=== PATIENT | female | born 1980 | race Caucasian/White ===

== ENCOUNTER 2016-06-04 19:02 | Emergency (ER) | payer OTHER ==
[~2016-06-04] VITALS: Ht 160 cm; Wt 87.3 kg
[~2016-06-04 19:02] MED LIST: CYM/30 PO; FEXO5TAB2 PO; FLUC150T PO
[2016-06-04 19:13] VITALS: TEMP 37; Ht 160 cm; Wt 87.3 kg
[2016-06-04] MEDS ORDERED: SODIUM CHLORIDE 0.9% 1000ML 1,000 ML IV STA ×2 (20:15)
[2016-06-04] MEDS ORDERED: ONDANSETRON INJ 2 MG/ML 2 ML VIAL IV STA ×2 (20:15→22:43)
--- NOTE | 2016-06-04 20:21 | EMERGENCY ROOM VISIT NOTE ---
History Report prepared by Nbaibsuzanne: Deepika Franks Under the Supervision of: Dr. Ilya Stubbs D.O. First contact with patient: 20:04 Chief Complaint: ABDOMINAL PAIN Stated Complaint: INTENSE PAIN IN RT SIDE, DIZZY, SHAKEY, NAUSEA History of Present Illness The patient is a 36 year old female who presents to the Emergency Room with complaints of worsening abdominal pain for the past 2 to 3 weeks. She rates her discomfort as an 8.5/10. She states "I think it's a ruptured ovarian cyst or my appendix". 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 She notes last night her pain worsened, mainly on the right side, so she made an appointment with [facility] OB /ADVANCED REGISTERED NURSE today. She saw Dr. Gillette earlier today and states he ordered lab work and recommended she undergo an ultrasound next week. She has also experienced nausea , dizziness and shakiness. She denies any diarrhea, urinary symptoms or rectal bleeding. She admits to some brown vaginal discharge earlier today and reports her LMP ended this past week. She notes her menstrual period was "the heaviest it has been since I was a teenager". She is currently sexually active. Source of History: patient Onset: 2 to 3 weeks ROCK [employer] Position: abdomen Symptom Intensity: 8.5/10 Timing: worsening Associated Symptoms: + nausea, No diarrhea, No urinary symptoms Review of Systems See HPI for pertinent positives & negatives. A total of 10 systems reviewed and were otherwise negative. Past Medical & Surgical Medical Problems: (1) Shubham's thyroiditis Surgical Problems: (1) History of wisdom tooth extraction (2) Ovarian tumor Family History Cancer Seizures Social History Smoking Status: Never Smoker Smokeless Tobacco Use: No Alcohol Use: occasionally Drug Use: none Marital Status: single Housing Status: lives with family Occupation Status: employed Current/Historical Medications Scheduled Duloxetine Hcl (Cymbalta), 20 MG PO DAILY Levothyroxine Sodium (Levothyroxine Sodium), 1 TAB PO DAILY Polyethylene Glycol 3350 (Miralax), 17 GM PO DAILY Scheduled PRN Fexofenadine-Pseudoephedrine (Eva-D 12 Hour Allergy), 1 TAB PO BID PRN Lorazepam (Ativan), 0.5 MG PO for Anxiety Allergies Coded Allergies: No Known Allergies (Unverified , 08/29/12) Physical Exam Vital Signs Date Time Temp Pulse Resp B/P Pulse Ox O2 Delivery O2 Flow Rate FiO2 06/04/16 19:13 37.0 85 18 127/90 96 Room Air Physical Exam GENERAL: Patient is awake, alert, in no acute distress, patient is resting comfortably and showing no signs of anxiety EYES: The conjunctivae are clear. The pupils are round and reactive. EARS, NOSE, MOUTH AND THROAT: The nose is without any evidence of any deformity. Mucous membranes are moist tongue is midline NECK: The neck is nontender and supple. RESPIRATORY: Normal respiratory effort is noted there is no evidence of wheezing rhonchi or rales CARDIOVASCULAR: Regular rate and rhythm noted there no murmurs rubs or gallops normal S1 normal S2 GASTROINTESTINAL: The abdomen is mildly distended but soft. There is RLQ tenderness to palpation and bilateral lower suprapubic tenderness to palpation, no guarding or rigidity noted. BACK: No midline tenderness or or step-off noted range of motion in flexion extension as well as rotation no signs of muscle spasm noted MUSCULOSKELETAL/EXTREMITIES: There is no evidence of gross deformity full range of motion is noted in the hips and shoulders SKIN: There is no obvious evidence of any rash. There are no petechiae, pallor or cyanosis noted. NEUROLOGIC: Patient is awake alert and oriented x3 Medical Decision & Procedures ER Provider Diagnostic Interpretation: This CT scan was reviewed and interpreted by the radiologist and reviewed by myself. Preliminary Findings Only See Final Report For Complete Findings CT ABDOMEN & PELVIS: The appendix is normal in size without evidence of surrounding inflammatory change. Moderate amount of retained stool throughout the colon. Correlate for constipation. No free fluid. No free air. No evidence of bowel obstruction. The liver, spleen, pancreas, gallbladder and kidneys are unremarkable. Radiologist: Richi Banks MD Study ready at 23:34 and initial results transmitted at 00:09 Laboratory Results 06/04/16 20:30 Red Blood Count 4.81, Mean Corpuscular Volume 88.4, Mean Corpuscular Hemoglobin 31.0, Mean Corpuscular Hemoglobin Concent 35.1, Mean Platelet Volume 10.6, Neutrophils (%) (Auto) 71.0, Lymphocytes (%) (Auto) 21.7, Monocytes (%) (Auto) 6.6, Eosinophils (%) (Auto) 0.3, Basophils (%) (Auto) 0.2, Neutrophils # (Auto) 6.65, Lymphocytes # (Auto) 2.04, Monocytes # (Auto) 0.62, Eosinophils # (Auto) 0.03, Basophils # (Auto) 0.02 06/04/16 20:30 Test 06/04/16 20:30 White Blood Count 9.38 K/uL (4.8-10.8) Red Blood Count 4.81 M/uL (4.2-5.4) Hemoglobin 14.9 g/dL (12.0-16.0) Hematocrit 42.5 % (37-47) Mean Corpuscular Volume 88.4 fL (80-100) Mean Corpuscular Hemoglobin 31.0 pg (25-34) Mean Corpuscular Hemoglobin Concent 35.1 g/dl (32-36) Platelet Count 276 K/uL (130-400) Mean Platelet Volume 10.6 fL (7.4-10.4) Neutrophils (%) (Auto) 71.0 % Lymphocytes (%) (Auto) 21.7 % Monocytes (%) (Auto) 6.6 % Eosinophils (%) (Auto) 0.3 % Basophils (%) (Auto) 0.2 % Neutrophils # (Auto) 6.65 K/uL (1.4-6.5) Lymphocytes # (Auto) 2.04 K/uL (1.2-3.4) Monocytes # (Auto) 0.62 K/uL (0.11-0.59) Eosinophils # (Auto) 0.03 K/uL (0-0.5) Basophils # (Auto) 0.02 K/uL (0-0.2) RDW Standard Deviation 38.8 fL (36.4-46.3) RDW Coefficient of Variation 12.1 % (11.5-14.5) Immature Granulocyte % (Auto) 0.2 % Immature Granulocyte # (Auto) 0.02 K/uL (0.00-0.02) Urine Color YELLOW Urine Appearance CLEAR (CLEAR) Urine pH 7.5 (4.5-7.5) Urine Specific [place] 1.014 (1.000-1.030) Urine Protein NEG (NEG) Urine Glucose (UA) NEG (NEG) Urine Ketones NEG (NEG) Urine Occult Blood NEG (NEG) Urine Nitrite NEG (NEG) Urine Bilirubin NEG (NEG) Urine Urobilinogen NEG (NEG) Urine Leukocyte Esterase NEG (NEG) Anion Gap 10.0 mmol/L (3-11) Est Creatinine Clear Calc Drug Dose 101.5 ml/min Estimated GFR () 109.1 Estimated GFR (Non- 94.1 BUN/Creatinine Ratio 11.2 (10-20) Calcium Level 9.7 mg/dl (8.5-10.1) Total Bilirubin 0.3 mg/dl (0.2-1) Direct Bilirubin < 0.1 mg/dl (0-0.2) Aspartate Amino Transf (AST/SGOT) 17 U/L (15-37) Alanine Aminotransferase (ALT/SGPT) 20 U/L (12-78) Alkaline Phosphatase 73 U/L (45-117) Total Protein 8.7 gm/dl (6.4-8.2) Albumin 4.5 gm/dl (3.4-5.0) Lipase 158 U/L (73-393) Human Chorionic Gonadotropin, Qual NEG (NEG) Laboratory results per my review. Medications Administered Medications (Trade) Dose Ordered Sig/[place] Route Start Time Stop Time Status Last Admin Dose Admin Sodium Chloride (Nss 1000ml) 1,000 ml @ 999 mls/hr Q1H1M STAT IV 06/04/16 20:15 06/04/16 21:15 DC 06/04/16 20:46 999 MLS/HR Ondansetron HCl 4 mg 4 mg NOW STAT IV 06/04/16 20:15 06/04/16 20:16 DC 06/04/16 20:45 4 MG Sodium Chloride (Nss 1000ml) 1,000 ml @ 200 mls/hr Q5H STAT IV 06/04/16 20:15 06/05/16 01:14 06/04/16 20:46 200 MLS/HR Ondansetron HCl (Zofran Inj) 4 mg NOW STAT IV 06/04/16 22:43 06/04/16 22:45 DC 06/04/16 22:51 4 MG Fentanyl Citrate 50 mcg 50 mcg NOW STAT IV 06/04/16 22:43 06/04/16 22:45 DC 06/04/16 22:52 50 MCG Promethazine HCl/ Sodium Chloride (Phenergan Inj/ Nss 50ml) 50.5 ml @ 204 mls/hr NOW STAT IV 06/05/16 00:03 06/05/16 00:17 DC 06/05/16 00:03 204 MLS/HR ED Course 2011: The patient was evaluated in room A9B. A complete history and physical examination were performed. 2015: NSS 1000 ml @ 200 mls/hr IV, Zofran 4 mg IV, NSS 1000 ml @ 999 mls/hr IV. 2243: Fentanyl Citrate 50 mcg IV, Zofran 4 mg IV. 0003: Promethazine HCl 12.5 mg/NSS 50.5 ml @ 204 mls/hr IV. 0010: I reevaluated the patient. She is feeling better. I discussed her results and discharge instructions and she verbalized complete understanding and agreement. Medical Decision Prior records/ancillary studies reviewed. Triage Nursing notes reviewed. The patient's history was concerning for abdominal pain. Differential diagnosis: Etiologies such as appendicitis, diverticulitis, PUD, biliary pathology, UTI, pancreatitis, obstruction, mesenteric ischemia, aortic pathology, infections, inflammatory bowel disease, renal colic, as well as others were entertained. The patient is a 36-year-old female who presented to the emergency department for an evaluation of lower abdominal pain. She was sent to the emergency apartment for the possibility of appendicitis. She appeared to have reproducible right lower quadrant tenderness on physical exam. Her white blood cell count was not elevated but a CAT scan was ordered to evaluate further for signs of appendicitis. She did not appear to have signs of appendicitis on CAT scan. She does not appear to have a surgical abdomen on physical exam. She was treated with IV fluids IV pain medicine and IV antiemetics. She was feeling much better on subsequent reevaluation. I discussed the patient's laboratory radiographic studies with her. She was encouraged to rest and avoid any strenuous activity. She was encouraged to call her primary care physician in the morning to schedule follow point. She was also encouraged to return to the emergency department immediately if symptoms change worsen or the need arises. Impression Primary Impression: RLQ abdominal pain Additional Impression: Constipation Scribe Attestation The scribe's documentation has been prepared under my direction and personally reviewed by me in its entirety. I confirm that the note above accurately reflects all work, treatment, procedures, and medical decision making performed by me. Departure Information Dispostion Home / Self-Care Prescriptions Polyethylene Glycol 3350 (MIRALAX) 1 Pow 17 GM PO DAILY, #527 GM Prov: Ilya Stubbs, 06/05/16 Referrals Eileen Ruelas D.ONo (PCP) Patient Instructions My [facility] Problem Qualifiers Additional Impression: Constipation Constipation type: unspecified constipation type Qualified Codes: K59.00 - Constipation, unspecified
[2016-06-04] MEDS ORDERED: LORA-741 PO (20:52)
[2016-06-04] MEDS ORDERED: DULO-24 PO (20:52)
[2016-06-04] MEDS ORDERED: LEVO75TA5 PO (20:52)
[2016-06-04 21:05] LABS: URINE APPEARANCE CLEAR (CLEAR); URINE BILIRUBIN NEG (NEG); URINE COLOR YELLOW; URINE NITRITE NEG (NEG); URINE PH 7.5 (4.5-7.5); URINE SPECIFIC GRAVITY 1.014 (1.000-1.030); UROBILINOGEN NEG (NEG)
[2016-06-04 21:17] LABS: MANUAL MICROSCOPIC REQUIRED? NO; REVIEW REQ? NO
[2016-06-04 21:19] LABS: BASO % 0.2 %; BASO ABS # 0.02 K/uL (0-0.2); COMPLETE YES; EOS % 0.3 %; HEMATOCRIT 42.5 % (37-47); IG% 0.2 %; LYMPH % 21.7 %; LYMPH ABS # 2.04 K/uL (1.2-3.4); MEAN CELL VOLUME 88.4 fL (80-100); MEAN CORPUSCULAR HGB CONC 35.1 g/dl (32-36); MEAN PLATELET VOLUME 10.6 fL (7.4-10.4); MONO % 6.6 %; PLATELET COUNT 276 K/uL (130-400); RED BLOOD COUNT 4.81 M/uL (4.2-5.4); WHITE BLOOD COUNT 9.38 K/uL (4.8-10.8)
[2016-06-04 21:35] LABS: ALT/SGPT 20 U/L (12-78); BLOOD UREA NITROGEN 9 mg/dl (7-18); BUN/CREATININE RATIO 11.2 (10-20); CALCIUM 9.7 mg/dl (8.5-10.1); CARBON DIOXIDE 27 mmol/L (21-32); CHLORIDE 102 mmol/L (98-107); CREATININE 0.81 mg/dl (0.60-1.20); GLUCOSE 93 mg/dl (70-99); POTASSIUM 3.6 mmol/L (3.5-5.1); SODIUM 139 mmol/L (136-145)
[2016-06-04 21:38] LABS: ALKALINE PHOSPHATASE 73 U/L (45-117); AST/SGOT 17 U/L (15-37)
[2016-06-04 21:45] LABS: PREG INTERNAL NEGATIVE QC NEG CLEAR BACKGROUND; PREG INTERNAL POSITIVE QC POS CONTROL LINE
[2016-06-04] MEDS ORDERED: FENTANYL CITRATE INJ 50 MCG/1 ML 2 ML VIAL IV STA (22:43)
[2016-06-04] MEDS ORDERED: OPTIRAY 320 IV PRN (23:15)
[2016-06-05] MEDS ORDERED: PROMETHAZINE HCL INJ 12.5 MG in SODIUM CHLORIDE 0.9% 50ML 50 ML IV STA (00:03)
[2016-06-05] MEDS ORDERED: POLY335019 PO (00:49)
[2016-06-05] MEDS ORDERED: TRAMADOL HCL 50 MG HOME PACK PO ONE (01:00)
[2016-06-05] MEDS ORDERED: ONDANSETRON HOME PACK 4MG OD TAB PO ONE (01:00)
[2016-06-05 01:21] VITALS: BP 123/81; PULSE 79; O2SAT 98
--- NOTE | 2016-06-05 07:33 | DIAGNOSTIC IMAGING REPORT ---
CT SCAN OF THE ABDOMEN AND PELVIS WITH IV CONTRAST CLINICAL HISTORY: Right lower quadrant abdominal pain. COMPARISON STUDY: Abdominal CT dated 06/19/2010. Pelvic ultrasound dated 07/10/2015. TECHNIQUE: Following the IV administration of 92 cc of Optiray 320, CT scan of the abdomen and pelvis is performed from the lung bases to the proximal femora. Images are reviewed in the axial, sagittal, and coronal planes. IV contrast was administered without complication. Automated dose control exposure was utilized. CT DOSE: 607.78 mGy.cm FINDINGS: Lung bases: The heart is normal in size and without pericardial effusion. The lung bases are clear. Liver: The contrast-enhanced liver is normal in size, contour, and attenuation. Focal fatty infiltration is seen adjacent to the falciform ligament. There is no intrahepatic biliary ductal dilatation. The hepatic veins and portal veins are patent. Gallbladder: Unremarkable. Spleen: Normal in size and attenuation. Pancreas: Unremarkable. Adrenal glands: Unremarkable. Kidneys: The contrast enhanced kidneys are normal in size and without hydronephrosis. The kidneys enhance symmetrically. Abdominal vasculature: The abdominal aorta is normal in course and caliber. Bowel: The small bowel and colon are normal in course and caliber. Moderate colonic fecal retention is observed. The appendix is well-visualized and normal. Peritoneum: There is no intraperitoneal free air or abdominal ascites. There is a fat-containing umbilical hernia. Lymphadenopathy: None. Pelvic viscera: The bladder, uterus, and adnexa are normal as visualized. There are small bilateral ovarian follicles. Skeletal structures: No lytic or blastic lesions are seen. IMPRESSION: 1. There are no acute infectious or inflammatory findings in the abdomen or pelvis. 2. Moderate constipation. Electronically signed by: Carlos Pinon M.D. 06/05/2016 7:32 AM Dictated Date/Time: 06/05/2016 7:29 AM
== END 2016-06-05 01:22 | disposition home or self-care (01) ==
LOC: C.EDB 19:03 → C.EDA 06-05 01:22
DX: R10.31 Right lower quadrant pain (principal); K59.00 Constipation, unspecified; E06.3 Autoimmune thyroiditis; Z86.018 Personal history of other benign neoplasm; Z79.899 Other long term (current) drug therapy; Z80.9 Family history of malignant neoplasm, unspecified; Z82.0 Family history of epilepsy and other diseases of the nervous system

== ENCOUNTER 2016-11-17 07:44 | Emergency (ER) | payer OTHER ==
[~2016-11-17] VITALS: Ht 157.5 cm; Wt 84.4 kg
[~2016-11-17 07:44] MED LIST changes: -CYM/30 PO; +DULO-24 PO; -FLUC150T PO; +LEVO75TA5 PO; +LORA-741 PO; +POLY335019 PO
[2016-11-17 07:49] VITALS: TEMP 36.4; Ht 157.5 cm; Wt 84.4 kg
[2016-11-17] MEDS ORDERED: ACET-1256 PO (08:30)
[2016-11-17] MEDS ORDERED: OXYC-57 PO (08:30)
[2016-11-17] MEDS ORDERED: ONDA4TAB10 SL (08:30)
[2016-11-17] MEDS ORDERED: MAGNESIUM HYDROXIDE SUSP 30 ML UDC PO ONE (08:45)
--- NOTE | 2016-11-17 09:02 | EMERGENCY ROOM VISIT NOTE ---
History First contact with patient: 08:10 Chief Complaint: THROAT PAIN/INJURY Stated Complaint: TONSILS OUT, BLEEDING THROAT History of Present Illness The patient is a 36 year old female who presents to the Emergency Room with complaints of post-tonsillectomy bleeding and a sensation of clot or scab in her throat. Patient had tonsillectomy performed by Dr. boswell last , 11/12. Has been taking regular percocet 5 and ondansetron prn as prescribed. Pain well controlled. Patient noticed scabs starting to come off in the last 24 hours, and has been feeling blood down throat and has been spitting up red blood this morning. She gargled ice water at home and this slowed the bleeding; she does not have any active bleeding at time of this history. Her only complaint at this time is the sensation of something stuck in her throat. No vomiting since 11/12 but does complain of nausea; last ondansetron taken at 0400 today. 3 percocet taken in the past 12 hours, last at 0700 today. Other complaints include opioid induced constipation. Review of Systems See HPI for pertinent positives and negatives. A total of ten systems were reviewed and were otherwise negative. Past Medical/Surgical History Medical Problems: (1) Shubham's thyroiditis Surgical Problems: (1) History of wisdom tooth extraction (2) Ovarian tumor Family History Cancer Seizures Social History Smoking Status: Never Smoker Alcohol Use: occasionally Drug Use: none Marital Status: single Housing Status: lives with family Occupation Status: employed Current/Historical Medications Scheduled Duloxetine Hcl (Cymbalta), 20 MG PO DAILY Levothyroxine Sodium (Levothyroxine Sodium), 75 MCG PO DAILY Scheduled PRN Acetaminophen (Tylenol), 500 MG PO UD PRN for Pain Lorazepam (Ativan), 0.5 MG PO for Anxiety Ondasetron Odt (Zofran Odt), 4 MG SL Q6H PRN for Nausea Oxycodone/Acetaminophen 5MG/325MG (Percocet 5MG/325MG), 1-2 TABLETS PO Q4H PRN for Pain Physical Exam Vital Signs Date Time Temp Pulse Resp B/P (MAP) Pulse Ox O2 Delivery O2 Flow Rate FiO2 11/17/16 07:54 96 Room Air 11/17/16 07:49 36.4 84 18 111/80 96 Room Air Physical Exam GENERAL: Awake, alert, well-appearing, in no distress HENT: Eschar of tonsillectomy noted bilaterally; no active bleeding noted; diffuse swelling of posterior pharynx; Brown hue to tongue likely related to leftover clotted blood. EYES: Normal conjunctiva. Sclera non-icteric. NECK: + LAD bilaterally of anterior cervical chain, submental, submandibular glands. Supple. No nuchal rigidity. FROM. No JVD. RESPIRATORY: Clear to auscultation. CARDIAC: Regular rate, normal rhythm. Extremities warm and well perfused. Pulses equal. ABDOMEN: Soft, non-distended. No tenderness to palpation. No rebound or guarding. No masses. RECTAL: Deferred. MUSCULOSKELETAL: Chest examination reveals no tenderness. The back is symmetrical on inspection without obvious abnormality. There is no CVA tenderness to palpation. No joint edema. LOWER EXTREMITIES: Calves are equal size bilaterally and non-tender. No edema. No discoloration. NEURO: Normal sensorium. No sensory or motor deficits noted. SKIN: No rash or jaundice noted. Medical Decision & Procedures ED Course 0735: patient arrives in ED 0800: patient roomed in A4B 0815: complete H&P performed on patient; no active bleeding noted; residual clotted blood remains on tongue and eschar noted around tonsils. 0835: ordered 30 mL milk of magnesia to help with constipation from opioids. 0845: ordered ENT-directed post-tonsillectomy bleeding protocol of iced saline: H2O2 in 5:1 ratio; gargle and spit for 5 minutes. 0905: patient reevaluated; no active bleeding; complaint of clot/scab in throat has alleviated and patient reports several small clots were brought up after gargling. 0915: patient cleared for DC. Medical Decision 36 yo patient presents with acute post-tonsillectomy bleeding and sensation of clot or scab stuck in her throat. PE did not demonstrate any active bleeding, but evidence of leftover clotted blood in the oral cavity. By the evaluation outlined above other emergent etiologies were deemed relatively unlikely. The patient was educated about the findings. All questions were answered and the patient was pleased with the treatment. Return instructions were outlined and the patient was discharged in stable condition. The patient was referred for follow-up with ENT if necessary for a recheck of the current condition. Discussed with patient to return to ED if any issues persist including sudden onset or worsening of bleeding, difficulty swallowing, new onset of fever, severe nausea and/or vomiting. Impression Primary Impression: Post-tonsillectomy hemorrhage Additional Impression: Therapeutic opioid-induced constipation (OIC) Departure Information Dispostion Home / Self-Care Condition GOOD Referrals David Glynn III, M.D. (PCP) Patient Instructions My [facility] Additional Instructions The patient was referred for follow-up with ENT if necessary for a recheck of the current condition. Discussed with patient to return to ED if any issues persist including sudden onset or worsening of bleeding, difficulty swallowing, new onset of fever, severe nausea and/or vomiting. If symptoms persist, we recommend gargling salt water at home. Oxycodone (OxyIR) 5mg: Take 1-2 pills every four hours as needed for breakthrough pain. Avoid alcohol, operating machinery or dangerous equipment, working on ladders or roofs, DRIVING, or situations where being under the influence may be dangerous. It is recommended to use a stool softener such as Colace, 100mg twice daily, or milk of magnesia while taking this medication to avoid constipation. Resident Tracking Resident Involvement: Resident Care Provided Care Provided: Adult ED Problem Qualifiers
--- NOTE | 2016-11-17 09:23 | EMERGENCY ROOM VISIT NOTE ---
ED Visit Note First contact with patient: 08:10 Patient seen and examined at bedside. Patient with obvious healing assure status post tonsillectomy. No active bleeding noted. No fevers/chills. No difficulty swallowing, no trismus, no stridor. No blood seen here with gargling per ENT recommendations. Discussed treatment of constipation at bedside. Discussed follow-up with ENT, symptoms to watch and return for, she verbalized understanding was agreeable with plan.
[2016-11-17 09:29] VITALS: BP 139/69; PULSE 78; O2SAT 97
== END 2016-11-17 09:31 | disposition home or self-care (01) ==
LOC: C.EDB 07:46 → C.EDA 09:31
DX: K91.841 Postprocedural hemorrhage of a digestive system organ or structure following other procedure (principal); K59.03 Drug induced constipation; E06.3 Autoimmune thyroiditis; Z79.899 Other long term (current) drug therapy; Z80.9 Family history of malignant neoplasm, unspecified; Z82.0 Family history of epilepsy and other diseases of the nervous system

== ENCOUNTER 2016-11-18 05:45 | Emergency (ER) | payer OTHER ==
[~2016-11-18] VITALS: Ht 160 cm; Wt 84.6 kg
[~2016-11-18 05:45] MED LIST changes: +ACET-1256 PO; -FEXO5TAB2 PO; +ONDA4TAB10 SL; +OXYC-57 PO; -POLY335019 PO
[2016-11-18 05:51] VITALS: TEMP 37.6; Ht 160 cm; Wt 84.6 kg
[2016-11-18] MEDS ORDERED: PROMETHAZINE HCL INJ 25 MG/ML 1 ML VIAL IM STA (06:08)
[2016-11-18] MEDS ORDERED: KETOROLAC TROMETHAMINE 60 MG/2 ML VIAL IM STA (06:11)
--- NOTE | 2016-11-18 06:35 | DIAGNOSTIC IMAGING REPORT ---
CHEST 2 VIEWS ROUTINE HISTORY: 36 years-old Female cough, fever, s/p tonsillectomy COMPARISON: CT abdomen and pelvis 06/04/2016 TECHNIQUE: Frontal and lateral views of the chest FINDINGS: Cardiomediastinal and hilar silhouettes are within normal limits. No pneumothorax, pleural effusion or focal airspace consolidation. The bones are grossly intact. IMPRESSION: No acute cardiopulmonary process. The above report was generated using voice recognition software. It may contain grammatical, syntax or spelling errors. Electronically signed by: Boom Yepez M.D. 11/18/2016 6:33 AM Dictated Date/Time: 11/18/2016 6:33 AM
[2016-11-18] MEDS ORDERED: FAMOTIDINE 20 MG TAB PO ONE (07:00)
--- NOTE | 2016-11-18 07:05 | EMERGENCY ROOM VISIT NOTE ---
History Report prepared by Kailyn: Clifton Larson Under the Supervision of: Dr. Sabine Alves M.D. First contact with patient: 06:01 Chief Complaint: FEVER Stated Complaint: SPIKED FEVER,COUGHING PHLEM,TONSILS OUT THURS History of Present Illness The patient is a 36 year old female who presents to the Emergency Room with complaints of a worsening fever of ~101 degrees beginning today. Pt states it was dark when she took her temperature, so she wasn't sure. She also complains of a productive cough, abdominal pain, nausea, dizziness, and headaches. She denies any shortness of breath or urinary symptoms. The patient notes that she had her tonsils removed five days ago, and was seen in the ED a few days ago for tonsillar bleeding. She states she was told to return to the ED if she developed a fever. She states that she has been eating and drinking without significant difficulty. The patient has been using Oxycodone for her post- surgical pain. Source of History: patient Onset: Today Symptom Intensity: 101 degrees Quality: other (fever) Timing: worsening Associated Symptoms: + headache, + cough (productive), + nausea, + abdominal pain, No SOB, No urinary symptoms Note: Additional symptoms: dizziness. Review of Systems See HPI for pertinent positives & negatives. A total of 10 systems reviewed and were otherwise negative. Past Medical & Surgical Medical Problems: (1) Shubham's thyroiditis Surgical Problems: (1) History of wisdom tooth extraction (2) Ovarian tumor Family History Cancer Seizures Social History Smoking Status: Never Smoker Alcohol Use: occasionally Drug Use: none Marital Status: single Housing Status: lives with family Occupation Status: employed Current/Historical Medications Scheduled Duloxetine Hcl (Cymbalta), 20 MG PO DAILY Levothyroxine Sodium (Levothyroxine Sodium), 75 MCG PO DAILY Scheduled PRN Acetaminophen (Tylenol), 500 MG PO UD PRN for Pain Lorazepam (Ativan), 0.5 MG PO for Anxiety Ondasetron Odt (Zofran Odt), 4 MG SL Q6H PRN for Nausea Oxycodone/Acetaminophen 5MG/325MG (Percocet 5MG/325MG), 1-2 TABLETS PO Q4H PRN for Pain Allergies Coded Allergies: Morphine (Unverified Adverse Reaction, Unknown, GI UPSET/VOMITING, 11/17/16 ) Physical Exam Vital Signs Date Time Temp Pulse Resp B/P (MAP) Pulse Ox O2 Delivery O2 Flow Rate FiO2 11/18/16 07:12 68 18 109/71 98 11/18/16 05:51 37.6 92 18 119/79 95 Room Air Physical Exam Vital signs reviewed. General: Well-appearing female, in no significant distress. HEENT: No scleral icterus, PERRLA, neck supple. Atraumatic. Post-surgical changes to the posterior oropharynx. No active bleeding. Cardiovascular: Regular rate and rhythm, no extra sounds. Pulmonary: Clear to auscultation bilaterally, normal work of breathing. Abdomen: Soft, nondistended, positive bowel sounds. Obese abdomen with epigastric tenderness to palpation. No rebound or guarding. Musculoskeletal: Atraumatic, no peripheral edema. Neurologic: Patient awake alert and oriented x 3 Skin: Warm, dry, no rash Medical Decision & Procedures ER Provider Diagnostic Interpretation: X-ray results as stated below per interpretation by me and the radiologist: CHEST 2 VIEWS ROUTINE FINDINGS: Cardiomediastinal and hilar silhouettes are within normal limits. No pneumothorax, pleural effusion or focal airspace consolidation. The bones are grossly intact. IMPRESSION: No acute cardiopulmonary process. The above report was generated using voice recognition software. It may contain grammatical, syntax or spelling errors. Electronically signed by: Boom Yepez M.D. 11/18/2016 6:33 AM Medications Administered Medications (Trade) Dose Ordered Sig/[place] Route Start Time Stop Time Status Last Admin Dose Admin Promethazine HCl (Phenergan Inj) 25 mg NOW STAT IM 11/18/16 06:08 11/18/16 06:10 DC 11/18/16 06:24 25 MG Ketorolac Tromethamine (Toradol Inj) 60 mg NOW STAT IM 11/18/16 06:11 11/18/16 06:12 DC 11/18/16 06:24 60 MG Famotidine (Pepcid Tab) 20 mg NOW ONCE PO 11/18/16 07:00 11/18/16 07:01 DC 11/18/16 07:07 20 MG ED Course 0604: Past medical records reviewed. The patient was evaluated in room B2. A complete history and physical examination was performed. 0608: Ordered Phenergan Inj 25 mg IM. 0611: Ordered Toradol Inj 60 mg IM. 0700: Ordered Pepcid Tab 20 mg PO. 704: Upon reevaluation, the patient appeared to have improvement of her symptoms. I discussed findings with her. She verbalized agreement of the treatment plan. The patient was discharged home. Medical Decision Differential diagnosis includes but is not limited to: pneumonia, UTI, dehydration, anxiety, peptic ulcer disease and gastritis. This pt was evaluated and appeared to be in no distress. IV access was obtained and lab work was drawn. Pt was medicated with IM phenergan and toradol for her symptoms. She has taken zofran MANAGER RAIL without benefit. Pt c/o gastritis symptoms. She was given pepcid 20 mg po. Pt was feeling improved. CXR was obtained and is clear. Pt was d/c and advised to use pepcid as needed. She will continue tylenol for pain and fever. She was given and incentive spirometer and advised to ambulate as much as possible. Pt will f/u with her PCP this week and return to the ED if temp is much above 101.5. Medication Reconcilliation Current Medication List: was personally reviewed by me Blood Pressure Screening Patient's blood pressure: Normal blood pressure Blood pressure disposition: Did not require urgent referral Impression Primary Impression: Low grade fever Additional Impression: S/P tonsillectomy Scribe Attestation The scribe's documentation has been prepared under my direction and personally reviewed by me in its entirety. I confirm that the note above accurately reflects all work, treatment, procedures, and medical decision making performed by me. Departure Information Dispostion Home / Self-Care Referrals David Glynn III, M.D. (PCP) Forms HOME CARE DOCUMENTATION FORM, IMPORTANT VISIT INFORMATION Patient Instructions [facility] Additional Instructions Diagnosis: Low-grade fever, status post tonsillectomy Tylenol 650 mg every 6 hours as needed for pain. Incentive spirometer 10 times every hour while awake. Drink plenty of clear fluids. Be sure to ambulate as much as possible. Follow-up with Dr. Glynn in the next several days for reevaluation. Return to the emergency department for worsening of symptoms or any medical concerns. Problem Qualifiers
[2016-11-18 07:12] VITALS: BP 109/71; PULSE 68; O2SAT 98
== END 2016-11-18 07:14 | disposition home or self-care (01) ==
LOC: C.EDB 05:47
DX: R50.82 Postprocedural fever (principal); E06.3 Autoimmune thyroiditis; Z80.9 Family history of malignant neoplasm, unspecified; Z82.0 Family history of epilepsy and other diseases of the nervous system; Z79.899 Other long term (current) drug therapy

== ENCOUNTER → 2017-11-03 | Outpatient (CLI) | payer OTHER | END | disposition home or self-care (01) | LOC: C.LAB1850 10:36 | PROVIDERS: ATTEND Internal Medicine Endocrinology, Diabetes & Metabolism | DX: E06.3 Autoimmune thyroiditis (principal) ==